=== PATIENT | male | born 1955 | race Caucasian/White ===

== ENCOUNTER 2016-09-30 08:34 | Day surgery (SDC) | payer OTHER ==
--- NOTE | 2016-09-30 07:40 | HP ---
DATE OF SURGERY: 09/30/2016 HISTORY OF PRESENT ILLNESS: The patient is a 61 year-old with history of polyps last colonoscopy a couple of years or so ago. He has had some epigastric pain the past month or two. Ultrasound was negative according to the patient. He had three or four loose stools alternating with constipation. I felt he would benefit from upper endoscopy for evaluation of epigastric pain as well as follow up screening colonoscopy for further evaluation. PAST MEDICAL HISTORY: Diabetes. He had some fatty infiltration of the liver. He had some hypercholesterolemia with some reflux and chronic obstructive pulmonary disease. PAST MEDICAL HISTORY: None other than the prior colonoscopy. MEDICATIONS: Baby aspirin, Janumet, pioglitazone, Crestor, Fenofibrate, acid reflux pill as well as Advair Diskus. ALLERGIES: NKDA. FAMILY HISTORY: Pancreatic cancer in the father. Mother had diabetes. SOCIAL HISTORY: No smoking or alcohol abuse. REVIEW OF SYSTEMS: Twelve systems reviewed per admission assessment. No chest pain or palpitations other systems negative or noncontributory as above and per preadmission questionnaire. PHYSICAL EXAMINATION: GENERAL: No acute distress. HEENT: Sclerae nonicteric. NECK: No JVD. CHEST: Clear to auscultation. CVS: Regular rate and rhythm. ABDOMEN: Soft. No peritoneal signs. He had some mild epigastric tenderness. EXTREMITIES: No significant edema. NEURO: Alert, moving extremities symmetrically. No gross motor deficits noted. RECTAL: Deferred timed to endoscopy exam. IMPRESSION: Epigastric pain, some loose stools, history of polyps. He needs upper and lower endoscopy for further evaluation. Risks and benefits explained in detail including but not limited to bleeding or infection, risk of bowel injury or perforation possibly requiring open procedure, on ongoing morbidity, small risk of missed or nondiagnosis or incomplete exam possibly requiring barium enema, other studies or procedures, general risk of anesthesia or sedation. If these tests are both unremarkable may need to consider HIDA scan as he said he already had a negative gallbladder ultrasound. He understands all the above as well as the risk of bowel prep, risk of sedation, postoperative risk of nausea, vomiting, or cramping or inability to diagnose the etiology of his symptoms. He understands and agrees to the planned procedure and will proceed with EGD and colonoscopy as an outpatient.
[~2016-09-30 08:34] MED LIST: DIPRIVAN 200 MG/20 ML IV ONE; Ketamine HCl 50 MG/ML IV ONE
[2016-09-30] MEDS ORDERED: Lactated Ringers 1,000 ML IV ONE ×2 (08:54→10:49)
[2016-09-30] MEDS ORDERED: Lactated Ringers 1,000 ML IV SCH (09:00)
[2016-09-30] MEDS ORDERED: Xopenex 1.25 MG/0.5 ML UD NEBULE IH ONE (09:43)
[2016-09-30] MEDS ORDERED: Sodium Chloride 3 ML UD NEBULES IH ONE (09:44)
[2016-09-30] MEDS ORDERED: Sodium Chloride 3 ML UD NEBULES IH PRN (09:49)
[2016-09-30 11:37] VITALS: BP 131/80; PULSE 65; O2SAT 97
--- NOTE | 2016-09-30 15:49 | OP ---
SURGERY DATE/TIME: 09/30/2016 1000 PREOPERATIVE DIAGNOSIS: Some epigastric pain, history of polyps in need of follow up screening colonoscopy, some history of loose stools. POSTOPERATIVE DIAGNOSES: 1) Mild gastritis. 2) Very slight hiatal hernia versus normal variation of the gastroesophageal junction and hiatus. 3) Small raised lesion of transverse colon and sigmoid colon. 4) Mild distal esophageal erythema. 5) Somewhat poor bowel prep limiting the exam. 6) Mild diverticulosis. 7) Small internal and external hemorrhoids. 8) Vague small raised lesions transverse colon, sigmoid colon versus normal variation or hyperplastic lesion. PROCEDURES: 1) EGD with cold biopsy small bowel for celiac sprue. 2) Cold biopsy of antrum to evaluate for Helicobacter pylori. 3) Cold biopsy distal esophagus to evaluate for early esophagitis. 4) Colonoscopy terminal ileum. 5) Retrograde ileoscopy. 6) Random cold biopsy terminal ileum to evaluate for microscopic ileitis. 7) Random cold biopsy of colon to evaluate for microscopic colitis. 8) Cold biopsy removal small very vague raised lesion versus hyperplastic lesion versus normal variation of the mucosa and the transverse colon and sigmoid colon to be removed with cold biopsy forceps. SURGEON: Dr. Roberto Erwin. MEAT SCRUBBER: Sidney Whaley, Medical Student III. ANESTHESIA: MAC. ESTIMATED BLOOD LOSS: Minimal. INDICATIONS: As noted above. Risks and benefits explained in detail and not limited to and consent obtained. DESCRIPTION OF PROCEDURE AND FINDINGS: The patient was taken to the operating room. MAC anesthesia was introduced. After official time out and no disagreement with planned procedure bite block positioned. Video gastroscope easily passed down the esophagus to the patent pylorus to the junction of the second and third portion of duodenum. On withdrawal of the scope duodenum, duodenal bulb no signs of any ulcers or macroscopic inflammation but given his symptoms of epigastric pain and diarrhea it is felt that he warranted cold biopsy for celiac disease. Cold biopsy taken of small bowel to evaluate for celiac disease. Good hemostasis noted. The scope pulled back in the antrum and had some mild gastritis. Cold biopsy is taken to evaluate for TRISTIAN-test for Helicobacter pylori. On retroflex there was no large hiatal hernia. Whether there is a very slight weakness 0.5 cm versus normal variation of the hiatus picture taken. Otherwise there are no signs of any large polyps, masses, ulcers or any other obvious lesions in the stomach. The scope pulled back and gastroesophageal junction noted to be about 40 cm with some mild distal esophageal erythema, cold biopsy to evaluate for early esophagitis. There was no gross evidence of Castaneda's, no signs of any obvious esophageal masses or any other mucosal lesions on withdrawal of the scope. The patient tolerated this part of the procedure well. Attention was then turned to colonoscopy. Digital rectal exam did not reveal any rectal masses. He did have some small internal and external hemorrhoids. Video colonoscope inserted and passed up slowly and carefully through the very tortuous colon, slowly and carefully around to the cecum and up into the terminal ileum and retrograde ileoscopy was performed. On distal ileum no macroscopic evidence of any major issues but given his symptoms of diarrhea and some abdominal pain it was felt he warranted biopsy to evaluate for microscopic ileitis. Cold biopsy is taken in the terminal ileum random cold biopsies. Good hemostasis noted. The scope pulled back into the colon. Prep overall was somewhat poor particularly in the right colon limiting the exam for potential small lesions this was suction irrigated as well as possible. It did cause slightly limit the exam for potential small lesions. On withdrawal of the scope there were no signs of any large polyps, masses or obstructing lesions. There was a small vague raised area in the transverse colon removed with cold biopsy forceps. Good hemostasis noted. Because of the symptoms of diarrhea and some abdominal pain it was felt he warranted random cold biopsies throughout the colon to evaluate for microscopic colitis, this was accomplished with cold biopsy forceps. Good hemostasis noted. Scope pulled back over the left colon. He had a few diverticula and some mild diverticulosis and had small vague raised lesion versus early hyperplastic lesion in the sigmoid colon, removed with cold biopsy forceps. Good hemostasis noted. Otherwise he had some small internal and external hemorrhoids. There were no signs of any large polyps, masses or obstructing lesions. Again the prep did limit the exam. The scope is withdrawn. There were no immediate complications. Findings were later discussed with the family. We will see him back in the office next week to go over results.
== END 2016-09-30 11:45 | disposition home or self-care (01) ==
LOC: SDC 08:34
PROVIDERS: ATTEND Surgery
PROC: 0DB88ZX Excision of Small Intestine, Via Natural or Artificial Opening Endoscopic, Diagnostic (ICD-10-PCS; principal; 2016-09-30)
PROC: 0DB38ZX Excision of Lower Esophagus, Via Natural or Artificial Opening Endoscopic, Diagnostic (ICD-10-PCS; 2016-09-30)
PROC: 0DB68ZX Excision of Stomach, Via Natural or Artificial Opening Endoscopic, Diagnostic (ICD-10-PCS; 2016-09-30)
PROC: 0DJD8ZZ Inspection of Lower Intestinal Tract, Via Natural or Artificial Opening Endoscopic (ICD-10-PCS; 2016-09-30)
PROC: 0DBB8ZX Excision of Ileum, Via Natural or Artificial Opening Endoscopic, Diagnostic (ICD-10-PCS; 2016-09-30)
PROC: 0DBN8ZX Excision of Sigmoid Colon, Via Natural or Artificial Opening Endoscopic, Diagnostic (ICD-10-PCS; 2016-09-30)
PROC: 0DBL8ZX Excision of Transverse Colon, Via Natural or Artificial Opening Endoscopic, Diagnostic (ICD-10-PCS; 2016-09-30)
PROC: 0DBE8ZX Excision of Large Intestine, Via Natural or Artificial Opening Endoscopic, Diagnostic (ICD-10-PCS; 2016-09-30)
DX: K29.70 Gastritis, unspecified, without bleeding (principal); K44.9 Diaphragmatic hernia without obstruction or gangrene; K63.9 Disease of intestine, unspecified; K22.8 Other specified diseases of esophagus; L53.8 Other specified erythematous conditions; K57.90 Diverticulosis of intestine, part unspecified, without perforation or abscess without bleeding; K64.4 Residual hemorrhoidal skin tags; K64.8 Other hemorrhoids
CPT/HCPCS: 00740; 00810; 36415; 82962; 87081; 88305; 94640; J2704; A9270-GY